=== PATIENT | female | born 1980 | race Caucasian/White ===

== ENCOUNTER 2018-04-06 19:11 | Emergency (ER) | payer OTHER ==
[~2018-04-06 19:11] MED LIST: DOXY-181 PO; ESC10 PO; HYDR-385 PO; MET2TH PO
--- NOTE | 2018-04-06 19:15 | ER Report ---
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 Patient states after sleeping in bed with her daughter. Briefly, at bedtime and then getting up she felt a twinge in her left medial knee. She recalls no specific trauma or injury. She notes no twisting or straining. He notes no new activities or exercises. She notes onset of pain approximately 2 days ago. His got progressively worse through today. She tried to apply ice packs to it and take ibuprofen 200 mg 2 tablets without improvement. She notes the pain is now radiating both up and down her leg on the medial aspect of her knee. There is no color changes to the skin or swelling noted. She does note some point tenderness on the medial joint line. She denies family history of gout or arthritis. Allergies: Coded Allergies: No Known Drug Allergies (Verified , 11/18/14) Home Meds Active Scripts Hydrocodone Bit/Acetaminophen (NORCO 5-325 TABLET) 1 Each Tablet, 1 EACH PO Q4H PRN for PAIN, #12 TAB Prov:JOSEPH CONNOLLY DO 04/06/18 Reported Medications Escitalopram Oxalate (LEXAPRO) 10 Mg Tab, 20 MG PO DAILY, TAB 11/18/14 Hx Smoking: No Smoking Status: Never Smoker Hx Substance Use Disorder: No Hx Alcohol Use: Yes ( 1 with dinner) Constitutional Vital Sign - Last 24 Hours 04/06/18 04/06/18 19:17 20:00 Temp 97.8 Pulse 78 76 Resp 16 B/P (MAP) 136/87 129/84 (99) Pulse Ox 97 96 O2 Delivery Room Air Room Air Physical Exam General appearance: Mild distress Respiratory: Chest non tender, lungs are clear to auscultation. Cardiac: Regular rate and rhythm Extremities: Examination of the left lower extremity reveals a normal appearing knee. There is point tenderness along the joint line on the medial aspect. There is some tenderness over the course of the medial collateral ligament. There is no swelling. There is no erythema, no warmth. There is decreased range of motion at the joint. Ankle and foot are unremarkable DIFFERENTIAL DIAGNOSIS: After history and physical exam differential diagnosis was considered for sprain, strain, fracture, dislocation, contusion, tendinitis, ligament otitis Medical Decision Making EKG/Imaging Imaging X-ray: Left knee, 3 views was obtained. I viewed the images myself on the PACS system. My interpretation of the images is: No fracture no dislocation or malalignment, no degenerative changes. The radiologist interpretation had no clinically significant variation from this interpretation. ED Course/Re-evaluation ED Course Patient was admitted to an examination room. H&P was done. The differential diagnoses was considered. On clinical examination. Patient has right knee pain along the medial aspect of the joint. X-rays show chondrocalcinosis. Patient with likely gout or pseudogout. Patient advised conservative treatment plan of ibuprofen 600-800 mg 3 times daily with food. Patient was given a limited supply of Lortab for temporary pain relief. She is advised to apply heat to her knee. Follow-up with primary care and orthopedics Decision to Disposition Date: Apr 06, 2018 Decision to Disposition Time: 19:36 Depart Departure Latest Vital Signs Vital Signs Date Time Temp Pulse Resp B/P (MAP) Pulse Ox O2 Delivery O2 Flow Rate FiO2 04/06/18 20:00 76 129/84 (99) 96 Room Air 04/06/18 19:17 97.8 16 Impression: Primary Impression: Chondrocalcinosis Additional Impression: Left knee pain Condition: Improved Disposition: HOME OR SELF-CARE Referrals: LILIAM MACKEY PA-C (PCP) ALESIA FREITAS MD New Scripts Hydrocodone Bit/Acetaminophen (NORCO 5-325 TABLET) 1 Each Tablet 1 EACH PO Q4H PRN for PAIN, #12 TAB Prov: JOSEPH CONNOLLY DO 04/06/18 Patient Instructions: Arthritis (ED) Additional Instructions: Take ibuprofen 200 mg 3-4 tablets 3 times a day with food Apply heating pad to your knee Follow-up with your primary care if unimproved in 3-5 days You may need to go to [facility] for arthrocentesis to make the diagnosis of gout versus pseudogout Problem Qualifiers Additional Impression: Left knee pain Chronicity: acute Qualified Codes: M25.562 - Pain in left knee JOSEPH CONNOLLY DO Apr 06, 2018 19:15
[2018-04-06] MEDS ORDERED: HYDR-653 PO (19:57)
[2018-04-06 20:00] VITALS: BP 129/84
--- NOTE | 2018-04-06 20:00 | RADIOLOGY IMAGING REPORT ---
[place] [facility] [place] Huyen Collins : 1980 MR: [id number] V: [id number] EXAM DATE: ORDERING PHYSICIAN: JOSEPH CONNOLLY TECHNOLOGIST: Location: [facility] - [place] Patient: Huyen Collins : 1980 Visit/Account:[id number] Date of Sevice: 04/06/2018 INDICATION: medial L knee pain. No trauma. DATE: 04/06/2018 7:54 PM. TECHNIQUE: KNEE 3 VIEW LEFT COMPARISON: None FINDINGS: Bony alignment is normal. No evidence of fracture or dislocation. Meniscal chondrocalcino sis is prominent. No significant joint space narrowing. No effusion. IMPRESSION: Prominent meniscal chondrocalcinosis but no acute osseous abnormality. Report Dictated By: Steve Ram MD at 04/06/2018 7:54 PM Report E-Signed By: Steve Ram MD at 04/06/2018 7:55 PM WSN:[id number]
[2018-04-06] MEDS ORDERED: ACET/HYDROC 5/325MG TH ER ONLY 2 TAB/BOTTLE PO ONE (20:10)
== END 2018-04-06 20:10 | disposition home or self-care (01) ==
LOC: ER 19:54
DX: M11.262 Other chondrocalcinosis, left knee (principal); M25.562 Pain in left knee
CPT/HCPCS: 99283